=== PATIENT | female | born 1975 | race Caucasian/White ===

== ENCOUNTER → 2017-09-18 08:32 | Outpatient (CLI) | payer OTHER, SELFPAY ==
--- NOTE | 2017-09-18 08:34 | MM_ITS ---
MM Dig screening mamm BI w/CAD CAD Screening COMPARISON: Digital mammograms 01/11/2015 INDICATION: There Is a history of breast cancer patient maternal great aunt. There has been previous biopsy left breast. TECHNIQUE: Standard CC and MLO images were obtained. R2 CAD reviewed. FINDINGS: There is a diffusely dense and heterogenic parenchymal pattern lessening the sensitivity of mammography. There is an asymmetric density near the axillary tail the right breast which was not definitely seen on the previous mammogram. There are few benign-appearing calcifications left breast. There are no suspicious microcalcifications. IMPRESSION: Dense parenchymal pattern with possible developing asymmetric density right breast recommend the patient return for spot compression low and 90 degrees lateral view and an attempt at exaggerated cc view and ultrasound will be necessary as well BI-RADS Category: 0 Need Additional Imaging Evaluation RECOMMENDED FOLLOW-UP: IMM - IMMEDIATE FOLLOW-UP RECOMMENDED (A letter has been sent to the patient regarding results of the study.)
== END ==
PROVIDERS: PCP Physician Assistant; Visit Provider Physician Assistant
DX: Z12.31 Encounter for screening mammogram for malignant neoplasm of breast (principal)
CPT/HCPCS: 77067

== ENCOUNTER → 2017-10-09 13:19 | Outpatient (CLI) | payer OTHER, SELFPAY ==
--- NOTE | 2017-10-09 13:22 | MM_ITS ---
MM Dig mamm DX unilat RT CAD, US breast RT complete INDICATION: Follow-up abnormal mammogram ORDERING PHYSICIAN: KAVON Moran PATIENT AGE: 42 years COMPARISON: 09/18/2017 TECHNIQUE: Problem-solving views performed of the right breast along with right breast ultrasound FINDINGS: Right Mammogram: Spot compression views show persistent lobulated nodule in the upper outer aspect of the right breast measuring 2.2 x 2.1 cm. This has developed since an older mammogram of 01/11/2015 and corresponds to the abnormality noted on the screening study of 09/18/2017. Right breast ultrasound: Mammographic abnormality corresponds to a solid appearing nodule in the 10:00 region of the right breast measuring approximately 2 x 1.6 cm. The nodule is hypoechoic with fairly well-defined margins with some enhanced through transmission of sound. This may be related to a fibroadenoma however, biopsy is recommended for confirmation. IMPRESSION: Mammographic abnormality corresponds to a solid nodule which may be related to a fibroadenoma. Biopsy confirmation is recommended BI-RADS Category: 4 Suspicious Abnormality-Biopsy Considered RECOMMENDED FOLLOW-UP: BIO - BIOPSY RECOMMENDED Suggest ultrasound guided mammotome biopsy of the nodule in the upper outer right breast (A letter has been sent to the patient regarding results of the study.)
== END ==
PROVIDERS: PCP Physician Assistant; Visit Provider Physician Assistant
DX: R92.8 Other abnormal and inconclusive findings on diagnostic imaging of breast (principal)
CPT/HCPCS: 76641; 77065

== ENCOUNTER → 2017-10-23 09:40 | Outpatient (CLI) | payer OTHER, SELFPAY ==
--- NOTE | 2017-10-23 | US_ITS ---
US mammotome bx RT, MM Dig mamm DX unilat RT CAD, US breast RT complete INDICATION: Right breast mass ORDERING PHYSICIAN: KAVON Moran PATIENT AGE: 42 years COMPARISON: 10/09/2017 Right breast ultrasound: Ultrasound performed of the right breast once again confirms a 2 cm hypoechoic nodule in the 10:00 region of the right breast corresponding to the nodule seen on 10/09/2017. TECHNIQUE: Following obtaining informed consent under aseptic conditions and local anesthesia with 1% lidocaine and deeper anesthesia with lidocaine mixed with epinephrine skin gilda was performed and mammotomy needle inserted under sonographic guidance along the dorsal aspect of the hypoechoic nodule. Multiple mammotomy core biopsies obtained. A nonferromagnetic clip was then inserted. The patient tolerated the procedure well without evidence of immediate complications Right mammogram: Postbiopsy mammogram demonstrates postbiopsy changes in the upper outer right breast. Previously described nodule in the deep outer aspect of the right breast is once again noted is slightly smaller. A clip is present along the dorsal aspect of the nodule. Pathology: Benign fibroadenoma. IMPRESSION: Successful sonographic guided mammotomy biopsy of the right breast showing benign fibroadenoma. No immediate complications Recommend 6 month mammographic follow-up per routine protocol
== END ==
PROVIDERS: PCP Physician Assistant; Visit Provider Physician Assistant
DX: R92.8 Other abnormal and inconclusive findings on diagnostic imaging of breast (principal); N63.10 Unspecified lump in the right breast, unspecified quadrant
CPT/HCPCS: 19083; 76641; 77065; 88305; C2618

== ENCOUNTER → 2019-03-03 08:19 | Outpatient (CLI) | payer OTHER, SELFPAY ==
--- NOTE | 2019-03-03 08:21 | MM_ITS ---
PROCEDURE: MM DIG SCREENING MAMM BI W/CAD CLINICAL INDICATION: screening There is a history of breast cancer in patient's paternal great aunt. There has been a previous biopsy right breast for benign disease. COMPARISON: [facility] MM Dig screening mamm BI w/CAD from 09/18/2017 DXRT MM Dig mamm DX unilat RT CAD from 10/09/2017 DXRT MM Dig mamm DX unilat RT CAD from 10/23/2017 TECHNIQUE: Standard CC and MLO images were obtained. R2 CAD reviewed. FINDINGS: There is a diffusely dense and heterogenic parenchymal pattern somewhat lessening the sensitivity of mammography. The asymmetric nodular density previously biopsied is again seen near the axillary tail right breast and is stable. There is a benign-appearing calcification left breast. There are stable small nodes in both axilla. IMPRESSION: diffusely dense parenchymal pattern with no suspicious lesions seen BI-RAD Category: 2 Benign Finding(s) FOLLOW-UP: 1YR 1 Year Follow-up (A letter has been sent to the patient regarding results of the study.) Dictated by: Dr. Taurus Barrera MD 03/04/2019 10:[address] Taurus Barrera MD in [place] 03/04/2019 10:26
== END ==
PROVIDERS: PCP Physician Assistant; Visit Provider Physician Assistant
DX: Z12.31 Encounter for screening mammogram for malignant neoplasm of breast (principal)
CPT/HCPCS: 77067

== ENCOUNTER → 2019-06-24 13:25 | Outpatient (CLI) | payer OTHER, SELFPAY ==
[2019-06-24 14:01] LABS: Eosinophils # 0.1 K/mm3 (0.0-0.4); Eosinophils % 1.3 % (0.1-12.0); Hematocrit 36.5 % (37.0-47.0); Hemoglobin 11.2 g/dL (12.2-16.2); Lymphocytes # 1.3 K/mm3 (0.7-4.5); Lymphocytes % 30.8 % (10-50); Mean Corpuscular HGB Conc 30.6 g/dL (31.8-35.4); Mean Corpuscular Hemoglobin 25.7 pg (27.0-31.2); Mean Platelet Volume 10.9 fl (7.4-10.4); Monocytes # 0.2 K/mm3 (0.1-1.0); Monocytes % 5.7 % (1.7-9.3); Neutrophils # 2.6 K/mm3 (1.8-7.8); Neutrophils % 61.1 % (37.0-80.0); Platelet Count 342 K/mm3 (142-424); Red Blood Count 4.35 M/mm3 (4.20-5.40); Red Cell Distribution Width 15.5 % (11.5-17.5); White Blood Count 4.3 K/mm3 (4.8-10.8)
[2019-06-24 14:08] LABS: Chloride 111 mmol/L (98-107)
[2019-06-24 14:09] LABS: Sodium 142 mmol/L (136-145)
[2019-06-24 14:11] LABS: Alanine Aminotransferase 12 U/L (12-78); Aspartate Amino Transferase 22 U/L (14-36); Blood Urea Nitrogen 12 mg/dl (7-17); Carbon Dioxide 22 mmol/L (22.0-30.0); Estimated Glomerular Filt Rate 91 ml/min (>60); GFR (African American) 110 ML/MIN (>60)
[2019-06-24 14:12] LABS: Albumin Level 3.9 g/dl (3.5-5.0); Albumin/Globulin Ratio 1.3 (1.1-1.8); Alkaline Phosphatase 70 U/L (38-126); Bilirubin,Total 0.3 mg/dl (0.2-1.3); Calcium 9.5 mg/dl (8.4-10.2); Chol/HDL Ratio 5.3 (1-3.5); Cholesterol 196 mg/dl (140-200); Globulin 2.9 g/dL (1.3-3.2); Glucose 88 mg/dl (74-100); HDL Cholesterol 37 mg/dl (40-60); Total Protein,Serum 6.8 g/dl (6.3-8.2); Triglycerides 152 mg/dl (30-150); VLDL Cholesterol 30 mg/dL (0-40)
[2019-06-24 14:29] LABS: T4 (Thyroxine) 8.3 ug/dl (5.53-11.0)
[2019-06-24 14:42] LABS: Thyroid Stimulating Hormone 1.25 uIU/mL (0.465-4.68)
[2019-06-24 20:44] LABS: Amphetamine/Metha Screen,Urine Negative ng/ml (<1000); Barbiturates Screen,Urine Negative ng/ml (<200)
[2019-06-24 20:45] LABS: Benzodiazepines Screen,Urine Negative ng/ml (<200)
[2019-06-24 20:46] LABS: Cannabinoid Screen,Urine Negative ng/ml (<50); Cocaine Screen,Urine Negative ng/ml (<300)
[2019-06-24 20:47] LABS: Methadone Screen,Urine Negative ng/ml (<300); Opiate Screen,Urine Negative ng/ml (<300)
[2019-06-24 20:48] LABS: Phencyclidine Screen,Urine Negative ng/ml (<25)
[2019-06-25 12:37] LABS: Vitamin D 25 Hydroxy 20.5 ng/mL (30.0-100.0)
== END ==
PROVIDERS: Visit Provider Nurse Practitioner Family
DX: Z00.00 Encounter for general adult medical examination without abnormal findings (principal); Z79.899 Other long term (current) drug therapy; M54.9 Dorsalgia, unspecified; K43.9 Ventral hernia without obstruction or gangrene
CPT/HCPCS: 80053; 80061; 80305; 82652; 84436; 84443; 85025

== ENCOUNTER → 2019-07-08 10:21 | Outpatient (CLI) | payer OTHER, SELFPAY ==
--- NOTE | 2019-07-08 10:21 | CT_ITS ---
PROCEDURE: CT ABDOMEN PELVIS WO CON CLINICAL INDICATION: Possible hernia Umbilical hernia evaluation COMPARISON: No exams were available for comparison TECHNIQUE: Axial images obtained with sagittal and coronal reformats. All CT scans at the facility use one or more dose reduction, viz: automated exposure control, ma/kV adjustment per patient size (including targeted exams where dose is matched to indication, i.e. head), or iterative reconstruction technique. FINDINGS: LOWER THORAX: No acute finding ABDOMEN & PELVIS: Gallbladder slightly distended. The liver, spleen, adrenal glands, pancreas, and kidneys have an unremarkable appearance. No intestinal obstruction or free air. There are 3 appendicoliths noted the largest at approximately 4 mm. No evidence of appendicitis or diverticulitis. The uterus is bulky with a dense calcification anteriorly consistent with fibroid involvement. There is a small ventral abdominal wall hernia centrally 3 cm superior to the umbilicus. This contains small amount of fat. No acute bony anomalies are evident. IMPRESSION: 1. Small fat containing supraumbilical ventral abdominal wall hernia 2. Mildly distended gallbladder. 3. At least 3 appendicoliths noted. No evidence of appendicitis 4. Enlarged uterus with coarse calcification at the fundus consistent with fibroid involvement Dictated by: Raymond Pratt MD 07/09/2019 07:18 Electronically signed by Raymond Pratt MD in [place] 07/09/2019 07:18
== END ==
PROVIDERS: PCP Physician Assistant; Visit Provider Nurse Practitioner Family
DX: K43.9 Ventral hernia without obstruction or gangrene (principal)
CPT/HCPCS: 74176

== ENCOUNTER → 2019-10-22 07:45 | Outpatient (CLI) | payer OTHER, SELFPAY ==
[2019-10-22 07:49] LABS: Microscopic, Urine URINE MICROSCOPIC (MICROSCOPIC)
[2019-10-22 13:23] LABS: Appearance,Urine CLEAR (Clear); Basophils % 0.9 % (0.1-2.0); Bilirubin,Urine Negative (Negative); Blood, Urine Negative (Negative); Color,Urine YELLOW (Yellow); Eosinophils # 0.1 K/mm3 (0.0-0.4); Eosinophils % 1.4 % (0.1-12.0); Glucose,Urine (UA) Negative (Negative); Hematocrit 35.4 % (37.0-47.0); Hemoglobin 11.3 g/dL (12.2-16.2); Ketones,Urine Negative (Negative); Leukocyte Esterase,Urine Negative (Negative); Lymphocytes # 1.3 K/mm3 (0.7-4.5); Lymphocytes % 29.3 % (10-50); Mean Corpuscular HGB Conc 31.9 g/dL (31.8-35.4); Mean Corpuscular Hemoglobin 26.5 pg (27.0-31.2); Mean Corpuscular Volume 83.2 fl (81-99); Mean Platelet Volume 10.5 fl (7.4-10.4); Monocytes # 0.3 K/mm3 (0.1-1.0); Monocytes % 6.1 % (1.7-9.3); Neutrophils # 2.7 K/mm3 (1.8-7.8); Neutrophils % 62.3 % (37.0-80.0); Nitrate,Urine Negative (Negative); PH,Urine 6.5 (5.0-8.5); Platelet Count 245 K/mm3 (142-424); Protein,Urine Negative (Negative); Red Blood Count 4.25 M/mm3 (4.20-5.40); Red Cell Distribution Width 15.9 % (11.5-17.5); Urobilinogen,Urine 0.2 EU/dl (0.2); White Blood Count 4.3 K/mm3 (4.8-10.8)
[2019-10-22 13:34] LABS: Urine Pregnancy, HCG Qual. Negative (Negative)
[2019-10-22 13:39] LABS: Amorphous Sediment,Urine 3+ /lpf; Bacteria,Urine 1+ /lpf
[2019-10-22 13:46] LABS: Anion Gap 12.2 mEq/L (5-15); Blood Urea Nitrogen 13 mg/dl (7-17); Calcium 10.1 mg/dl (8.4-10.2); Carbon Dioxide 24 mmol/L (22.0-30.0); Chloride 105 mmol/L (98-107); Estimated Glomerular Filt Rate 68 ml/min (>60); GFR (African American) 82 ML/MIN (>60); Glucose 104 mg/dl (74-100); Potassium 4.2 mmoL/L (3.5-5.1); Sodium 137 mmol/L (136-145)
[2019-10-22 15:35] LABS: Coronavirus 19 IgG Antibody Negative (Negative); Coronavirus 19 IgM Antibody Negative (Negative)
== END ==
PROVIDERS: PCP Nurse Practitioner Family; Visit Provider Surgery
DX: Z01.818 Encounter for other preprocedural examination (principal); K43.9 Ventral hernia without obstruction or gangrene
CPT/HCPCS: 36415; 80048; 81001; 81025; 85025; 86328

== ENCOUNTER 2019-10-23 05:50 | Day surgery (SDC) | payer OTHER, SELFPAY ==
[2019-10-20 15:06] VITALS: BMI 25.7
--- NOTE | 2019-10-21 09:17 | SUR.PREOP ---
10/21/2019 @ 8507--PHONE CALL MADE TO PATIENT. PATIENT UNDERSTANDS THAT LAB WORK AND COVID TESTING NEEDS TO BE COMPLETED @ 0700 IN [place]. PATIENT UNDERSTANDS IF LAB WORK AND COVID-19 TESTS ARE NOT COMPLETED BY 12PM ON THAT DATE, THE SURGERY SCHEDULED WILL BE CANCELLED AND RESCHEDULED FOR ANOTHER TIME.
[2019-10-23] VITALS (11 sets, daily range): BP systolic 120–141; BP diastolic 70–92; PULSE 58–93; RESP 15–20; TEMP 6.1–43; O2SAT 99–100
--- NOTE | 2019-10-23 06:59 | HMH.ANESCL ---
[facility] Anesthesia Checklist - Patient Identification Patient Identification: Arm Band, Verbal (Name & ) - Structural Data Admitted From: Home Planned Operative Procedure/s: ventral hernia repair Consent for Planned Operative Procedure(s) Verified: Yes Verified Documents: History and Physical - NPO Status Verified Time NPO: 00:00 - Chart Verification Results Verified: CBC, BMP - Additional verifications Patient : No Anesthesia Reactions: No Hx Blood Transfusions: No Blood Transfusion Reaction: No Cephalosporin Allergy: No Previous Colonoscopy: No - Cardiovascular Assessment Heart Sounds: S1 & S2 Pulse Strength: Baseline Pulse Rhythm: Regular Peripheral Edema: No - Airway Assessment C-Spine Mobility Assessed: Yes TMJ Mobility Assessed: Yes Dentition: Good Dentition - Neurological Assessment Level of Consciousness: Awake, Alert, Appropriate Hx Seizures: No Numbness or tingling in extremities: No - Anesthesia Plan Anesthesia Risk discussed: Yes Anesthesia Plan: Verified ASA Class: I Anesthesia Type: General [facility] History I have reviewed the patient's past medical history: Yes Medical History: Denies:: Cancer, Diabetes Mellitus Type 1, Diabetes Mellitus Type 2, MRSA, Seizures *Have you ever received a pneumonia vaccine?: No *Have you received a flu vaccine this season?: No Other Medical History: Denies: Blood Transfusion Reaction Anesthesia experience/problems:: none Laterality Cases: Bilateral: Tonsillectomy Other Surgeries: Yes: Amputation: No Fractures: No - *Social History Smoking Status: Never smoker Alcohol Intake: never Substance Use Type: denies use *Occupational Status:: employed *Travel in the last 8 weeks: None Family Hx:: No significant family history
--- NOTE | 2019-10-23 08:40 | P.OP_ITS ---
Date of procedure: 10/23/19 Pre-op Diagnosis:: Supraumbilical hernia Post-op Diagnosis:: Same Procedure performed:: Laparoscopic-assisted open repair of supraumbilical hernia Surgeon:: Marshall Louis MD LAMP SHADE JOINER:: Rico Marlow Anesthesia: GETA Estimated blood loss (mL): 15 Operative findings:: 1.5 cm supraumbilical defect 6.4 cm VentraLex mesh repair Operative note:: After informed consent was obtained the patient was taken to the operating room and placed in the supine position. General anesthesia was induced and her abdomen was prepped and draped in a sterile fashion. After infiltration local anesthetic a stab incision was made in the left upper quadrant. A Veress needle was placed in position. The abdomen was insufflated. A 5 mm optical trocar was placed in the left mid flank. A 1.5 cm supraumbilical hernia was confirmed. An incision overlying the hernia was made. A 12 mm trocar was placed in position through the defect after the small hernia sac was excised. A 6.4 cm VentraLex mesh was placed through the trocar and secured circumferentially with 0 Ethibond. The fascia was then reapproximated primarily with 0 Ethibond. Pneumoperitoneum was released as the trocar was removed. All wounds were irrigated and skin was reapproximated with 4-0 Monocryl in a subcuticular fashion. Steri-Strips were applied. The patient's anesthetic agents were reversed and she was extubated prior to transfer to recovery. Condition: stable Disposition: PACU Specimens:: None Complications:: No immediate
--- NOTE | 2019-10-23 08:54 | P.PN_ITS ---
[facility] Anesthesia Record Part I Intake, IV Amount: 950 Estimated blood loss (mL): 5 Urine output (mL): 0 Blood Products used (#): none Blood Pressure: 141/84 SaO2: 100 Pulse Rate: 93 Respiratory Rate: 20 Temperature: 97.0 F Patient is:: Drowsy, Stable Stable to PACU at:: 08:52
--- NOTE | 2019-10-23 11:02 | HMH.ANESII ---
[facility] Anesthesia Record Part II Discharge Time: 09:22 Destination: Surgical Day Care (OP Surgery) PACU nurse assessment reviewed?: Yes Patient Condition:: Good Anesthesia Complications:: None Swallowing reflex intact?: Yes Cyanosis?: No Blood Pressure: 125/70 Pulse Rate: 60 Temperature: 97.6 F Mental Status: Alert & Oriented Pain level:: 0 Nausea and/or vomitting:: None Intake, IV Amount: 10
== END 2019-10-23 10:08 | disposition home or self-care (01) ==
LOC: OR 05:51
PROVIDERS: PCP Nurse Practitioner Family; Visit Provider Surgery
PROC: 0WQF4ZZ Repair Abdominal Wall, Percutaneous Endoscopic Approach (ICD-10-PCS; CPT 49652; principal; 2019-10-23 07:30)
DX: K43.9 Ventral hernia without obstruction or gangrene (principal); Z79.899 Other long term (current) drug therapy
CPT/HCPCS: 49652; 96374; C1781; J2710

== ENCOUNTER → 2020-03-14 07:58 | Outpatient (CLI) | payer OTHER, SELFPAY ==
--- NOTE | 2020-03-14 07:58 | MM_ITS ---
PROCEDURE: MM DIG SCREENING MAMM BI W/CAD Digital Breast Tomosynthesis Included CLINICAL INDICATION: screening History of breast cancer in the patient's maternal great aunt. There has been a previous biopsy right breast for benign disease. COMPARISON: [facility] MM Dig screening mamm BI w/CAD from 09/18/2017 MG DXRT MM Dig mamm DX unilat RT CAD from 10/09/2017 MG DXRT MM Dig mamm DX unilat RT CAD from 10/23/2017 MG MM DIG SCREENING MAMM BI W/CAD from 03/03/2019 TECHNIQUE: Standard CC and MLO images and 3D Tomosynthesis was obtained. R2 CAD reviewed. FINDINGS: There is prominent diffuse heterogenic fibroglandular densities in both breast primarily upper outer quadrants. There has been some progressive fatty replacement of the breast parenchyma from previous exams. There is a well-defined nodular density upper mid right breast and a biopsy clip projecting over this density. This likely is a fibroadenoma which was previously. There are few benign-appearing microcalcifications left breast and there is a mole marker left breast. There is no new or suspicious lesion in either breast and no suspicious microcalcifications. IMPRESSION: Moderately dense and heterogenic parenchymal pattern with no suspicious lesions seen BI-RAD Category: 2 Benign Finding(s) FOLLOW-UP: 1YR 1 Year Follow-up (A letter has been sent to the patient regarding results of the study.) Dictated by: Dr. Taurus Barrera MD 03/18/2020 08:25 Dr. Taurus Barrera MD in [place] 03/18/2020 08:25
== END ==
PROVIDERS: PCP Physician Assistant; Visit Provider Physician Assistant
DX: Z12.31 Encounter for screening mammogram for malignant neoplasm of breast (principal)
CPT/HCPCS: 77063; 77067

== ENCOUNTER → 2021-03-29 09:54 | Outpatient (CLI) | payer BC, SELFPAY ==
--- NOTE | 2021-03-29 09:58 | MM_ITS ---
PROCEDURE INFORMATION: Exam: MG Bilateral Screening 3D Mammography Exam date and time: 03/29/2021 9:58 AM Age: 45 years old Clinical indication: Screening mammogram TECHNIQUE: Imaging protocol: Bilateral screening tomosynthesis and 2D mammography including computer-aided detection (CAD) when performed. COMPARISON: 03/03/2019, 03/14/2020, 10/23/2017 FINDINGS: MAMMOGRAPHY: Breast composition: The breast tissue is heterogeneously dense, which may obscure small masses. Mass: Mass within the upper slightly inner posterior left breast measuring 12 mm with associated calcifications should be further assessed with spot magnification views in CC/ML projection. Ultrasound should also be performed. Architectural distortion: No new or suspicious architectural distortion. Calcifications: No new or suspicious calcifications are present Asymmetric density: No new or suspicious asymmetric density is present Skin thickening: None. Axillary adenopathy: None. IMPRESSION: Mass within the upper slightly inner posterior left breast measuring 12 mm with associated calcifications should be further assessed with spot magnification views in CC/ML projection. Ultrasound should also be performed. ASSESSMENT: BI-RADS category 0: Incomplete-need additional imaging evaluation
== END ==
PROVIDERS: PCP Nurse Practitioner Family; Visit Provider Nurse Practitioner Family
DX: Z12.31 Encounter for screening mammogram for malignant neoplasm of breast (principal)
CPT/HCPCS: 77063; 77067

== ENCOUNTER → 2021-05-17 14:00 | Outpatient (CLI) | payer BC, SELFPAY ==
--- NOTE | 2021-05-17 14:03 | MM_ITS ---
PROCEDURE INFORMATION: Exam: US Left Breast, Complete MG Left Diagnostic Breast Tomosynthesis Exam date and time: 05/17/2021 2:03 PM Age: 46 years old Clinical indication: Patient recalled for further evaluation of a calcified mass in the left breast TECHNIQUE: Imaging protocol: Complete ultrasound of all four quadrants of the Left breast and the retroareolar regions, including ultrasound of the axilla when performed. Left Diagnostic tomosynthesis and 2D mammography including computer-aided detection (CAD) when performed. Unilateral or bilateral exam. COMPARISON: 1. MG MM DIG SCREENING MAMM BI W/CAD 03/29/2021 10:02 AM 2. MG MM DIG SCREENING MAMM BI W/CAD 03/14/2020 8:06 AM FINDINGS: MAMMOGRAPHY: Digital diagnostic spot compression views of the left breast demonstrate a cluster of new calcifications in the middle third of the left upper inner quadrant spanning 1.1 cm of breast tissue. The calcifications are variable in size, shape, and density. In the 90 degree lateral view there is a questionable associated 1.2 cm ovoid mass. ULTRASOUND: Sonographic images of the left breast including the retroareolar region, all 4 quadrants and the axilla demonstrates a hypoechoic mass in the 11 o'clock axis 3 cm from the nipple measuring 1 1 x 5 x 0.7 cm in dimension. This may correlate with the questionable mass containing calcium on mammography. No architectural distortion or acoustical shadowing. No skin thickening or axillary adenopathy. IMPRESSION: Ultrasound-guided core biopsy is recommended for left sonographically visible 11 o'clock axis mass. It is unclear if this corresponds to the partially calcified mass on mammography. Clip placement and subsequent diagnostic left mammogram is recommended for accurate correlation. If the 2 findings do not correlate, then stereotactic core biopsy of the left-sided calcifications will be recommended ASSESSMENT: BI-RADS Category 4: Suspicious
== END ==
PROVIDERS: PCP Nurse Practitioner Family; Visit Provider Nurse Practitioner Family
DX: R92.8 Other abnormal and inconclusive findings on diagnostic imaging of breast (principal)
CPT/HCPCS: 76641; 77061; 77065; G0279

== ENCOUNTER → 2021-06-13 08:41 | Outpatient (CLI) | payer BC, SELFPAY ==
--- NOTE | 2021-06-13 09:02 | US_ITS ---
FINAL REPORT CLINICAL HISTORY: Left breast nodule ?2 FINDINGS: Note: Patient was scheduled for ultrasound directed biopsy of a small left breast nodule at 11:00 measuring 10 x 5 mm. However on initial assessment for localization of the nodule, a 2nd nodule was identified more superficially and larger than the original nodule. Therefore both nodules were targeted for biopsy. ULTRASOUND-GUIDED LEFT BREAST BIOPSY, 10:00 nodule, more superficial/anterior, nodule 1 TECHNIQUE: Limited images were obtained to localize region of interest. The was prepped in a routine sterile fashion and locally anesthetized with 1% lidocaine. The needle was positioned within the outer periphery of the lesion. A total of 3 passes were made with a 18 gauge core biopsy needle. 2 biopsy marker clips within the fluid within the lesion. 2 were utilized since all biopsy marker clips at the facility where identical in configuration implants at that time were to core biopsy a 2nd nodule of the ipsilateral breast. Procedure was well tolerated . A postbiopsy mammogram was acquired which showed the clips to be anterior and separate to calcifications identified on recent mammography CONCLUSION: 1. Technically successful ultrasound guided core biopsy of superficial/anterior left breast nodule at 10:00 as above. 2. Biopsy marker clip deployed 3. This nodule is separate from the abnormality containing calcifications on mammography. Therefore stereotactic biopsy of the calcifications is recommended. ULTRASOUND-GUIDED LEFT BREAST BIOPSY, 11:00 nodule more posterior, nodule #2 TECHNIQUE: Limited images were obtained to localize region of interest. The left was prepped in a routine sterile fashion and locally anesthetized with 1% lidocaine. Initial plan was to perform core biopsy of a 10 x 5 mm posterior left breast nodule. An 18-gauge core biopsy needle was directed toward the nodule. However significant resistance was encountered advancing the needle through the extremely dense breast tissue. Although the needle was noted to abut the nodule, the angle was suboptimal with concern that the biopsy needle would extend into the chest wall due to the angle and location of the nodule. The nodule was noted to reside on the left pectoralis muscle. A 17-gauge guide needle was entered advanced in an effort to gain a more optimal approach which was unsuccessful. An 11-gauge mammotome elite vacuum assisted needle was directed toward the nodule in an effort to position posterior to the lesion of interest. Again extremely dense tissue made advancement difficult. Despite efforts to infiltrate a pathway posterior to the nodule with lidocaine, the vacuum assisted needle could not be safely positioned posterior to the nodule. Ultrasound directed FNA was then performed. 3 passes were made with a 22-gauge needle. Specimen was submitted in CytoLyte. No clip was deployed within this nodule. Procedure was well tolerated . CONCLUSION: 1. Small left breast nodule not amenable to imaging directed core biopsy due to extreme posterior location and dense tissue. FNA performed of the nodule. This nodule may be associated with calcifications identified on mammography. However the other nodule that underwent core biopsy in the more anterior left breast was not associated with calcifications. 2. Six-month sonographic follow-up with attention to this nodule is recommended. Authenticated by Consuelo Cadet MD on 06/15/2021 02:25:09 PM [facility]
--- NOTE | 2021-06-13 10:23 | MM_ITS ---
FINAL REPORT CLINICAL HISTORY: post us bx, clip placement FINDINGS: MAMMOGRAM LEFT Comparison: Recent mammogram performed less than 3 months earlier TECHNIQUE: Standard digital 2-D views with 3-D tomosynthesis DENSITY: The breasts are heterogeneously dense, which may obscure small masses. FINDINGS: Loosely grouped calcifications in the central posterior left breast are noted. These are located separate from a recently biopsied nodule in the left breast associated with 2 biopsy marker clips. A biopsy marker clip is also noted in the posterior left breast in the upper outer quadrant. IMPRESSION: 1. Biopsy marker clip is noted within the central left breast. Nodule associated with the biopsy marker clips is only evident sonographically 2. Calcifications of interest within the central posterior left breast represent a separate process from the recently biopsied nodule associated with biopsy marker clips BI RAD 4: SUSPICIOUS RECOMMENDATION: Stereotactic biopsy of left breast calcifications Authenticated by Consuelo Cadet MD on 06/15/2021 02:28:57 PM [facility]
== END ==
LOC: RAD 08:41
PROVIDERS: PCP Nurse Practitioner Family; Visit Provider Nurse Practitioner Family
DX: R92.8 Other abnormal and inconclusive findings on diagnostic imaging of breast (principal)
CPT/HCPCS: 19083; 77065; C2618

== ENCOUNTER → 2022-04-26 14:22 | Outpatient (CLI) | payer BC, SELFPAY ==
--- NOTE | 2022-04-26 14:29 | XR_ITS ---
FINAL REPORT CLINICAL HISTORY: FAMILY H/O MALIGNANT NEOPLASM OF LUNG, cough FINDINGS: TWO-VIEW CHEST The heart size is normal. The mediastinum is normal. The lungs are clear. There is no pneumothorax. IMPRESSION: No acute cardiopulmonary process. Reviewed, Interpreted and Dictated by Mario Langston III, MD Transcribed by Lita Duran Authenticated and [facility]
== END ==
PROVIDERS: PCP Nurse Practitioner Family; Visit Provider Nurse Practitioner Family
DX: Z80.1 Family history of malignant neoplasm of trachea, bronchus and lung (principal)
CPT/HCPCS: 71046

== ENCOUNTER → 2022-06-20 10:05 | Outpatient (CLI) | payer BC, SELFPAY ==
--- NOTE | 2022-06-20 10:11 | MM_ITS ---
PROCEDURE INFORMATION: Exam: MG Bilateral Screening 3D Mammography Exam date and time: 06/20/2022 10:01 AM Age: 47 years old Clinical indication: Screening examination TECHNIQUE: Imaging protocol: Bilateral Screening tomosynthesis and 2D mammography including computer-aided detection (CAD) when performed. COMPARISON: 1. MG MM CLIP PLACEMENT LT 06/13/2021 10:28 AM 2. MG MM DIG MAMM DX UNILAT LT CAD 05/17/2021 1:58 PM FINDINGS: MAMMOGRAPHY: Breast composition: The breasts are extremely dense, which lowers the sensitivity of mammography. Mass: Questionable partially circumscribed mass in the anterior third of the left medial breast best seen in the craniocaudal tomographic view Architectural distortion: None. Calcifications: No suspicious calcifications. Asymmetric density: None. Skin thickening: None. Axillary adenopathy: None. IMPRESSION: Patient to be recalled for a spot compression view of the left breast in the craniocaudal projection, a full 90 degree lateral view of the left breast, and left breast ultrasound for further evaluation of a questionable left breast mass. ASSESSMENT: BI-RADS Category 0: Incomplete- Need Additional Imaging Evaluation and/or Prior Mammograms for Comparison
== END ==
PROVIDERS: PCP Nurse Practitioner Family; Visit Provider Nurse Practitioner Family
DX: Z12.31 Encounter for screening mammogram for malignant neoplasm of breast (principal)
CPT/HCPCS: 77063; 77067

== ENCOUNTER → 2022-08-22 12:55 | Outpatient (CLI) | payer BC, SELFPAY ==
--- NOTE | 2022-08-22 13:07 | MM_ITS ---
PROCEDURE INFORMATION: Exam: MG Left Diagnostic Breast Tomosynthesis Exam date and time: 08/22/2022 1:14 PM Age: 47 years old Clinical indication: Patient recalled on the basis of a screening mammogram for further evaluation; Left breast; mass TECHNIQUE: Imaging protocol: Left Diagnostic tomosynthesis and 2D mammography including computer-aided detection (CAD) when performed. Unilateral or bilateral exam. COMPARISON: 1. MG MM DIG SCREENING MAMM BI W/CAD 06/20/2022 10:01 AM 2. MG MM CLIP PLACEMENT LT 06/13/2021 10:28 AM FINDINGS: MAMMOGRAPHY: Digital diagnostic spot compression views of the left breast and 90 degree lateral view of the left breast demonstrate normal overlapping fibroglandular structures without persistent mass or asymmetry identified. IMPRESSION: No mammographic evidence of malignancy. Annual bilateral mammographic screening is recommended unless otherwise clinically indicated. ASSESSMENT: BI-RADS Category 1: Negative
== END ==
PROVIDERS: PCP Nurse Practitioner Family; Visit Provider Nurse Practitioner Family
DX: R92.2 Inconclusive mammogram (principal)
CPT/HCPCS: 77061; 77065; G0279

== ENCOUNTER 2023-08-21 08:17 | Outpatient (CLI) | payer BC, SELFPAY | END 2023-08-21 23:59 | disposition home or self-care (01) | LOC: RAD 08:17 | PROVIDERS: PCP Nurse Practitioner Family; Visit Provider Nurse Practitioner Family | DX: Z12.31 Encounter for screening mammogram for malignant neoplasm of breast (principal) | CPT/HCPCS: 77063; 77067 ==

== ENCOUNTER 2024-12-16 09:28 | Outpatient (CLI) | payer BC, SELFPAY ==
--- NOTE | 2024-12-16 09:31 | MM_ITS ---
PROCEDURE INFORMATION: Exam: MG Bilateral Screening 3D Mammography Exam date and time: 12/16/2024 10:00 AM Age: 49 years old Clinical indication: Screening examination TECHNIQUE: Imaging protocol: Bilateral Screening tomosynthesis and 2D mammography including computer-aided detection (CAD) when performed. COMPARISON: 1. MG MM DIG SCREENING MAMM BI W/CAD 08/21/2023 8:13 AM 2. MG MM DIG MAMM DX UNILAT LT CAD 08/22/2022 1:14 PM FINDINGS: MAMMOGRAPHY: Breast composition: The breasts are heterogeneously dense, which may obscure small masses. Mass: No suspicious masses. Architectural distortion: None. Calcifications: No suspicious calcifications. Asymmetric density: None. Skin thickening: None. Axillary adenopathy: None. IMPRESSION: No mammographic evidence of malignancy. Annual screening is recommended unless otherwise clinically indicated. ASSESSMENT: BI-RADS Category 1: Negative.
--- OUTSIDE RECORDS SUMMARY | 2024-12-16 09:31 | XMS_ITS | Patient Health Record ---
Author Organization [facility] Address [address] [facility] [address] [place] [address] Care Team Providers Care Meeting/Event Planner Name Role Phone Luis Aparicio Unavailable [phone] Allergies No Known Allergies Results Component Value Reference Range Notes Pap w/HPV Reviewed date:08/05/2024 08:55:09 PM Interpretation:Pap normal, HPV negative Performing Lab:Mel ROBINS [facility] MW MILENA CLIA ID [id number], [address], [address], [place] [address], Director - Chico Rosen MD Notes/Report: Any Nucleic Acid Amplification testing is performed on the [employer] [place]. Diagnosis: Negative for intraepithelial lesion or malignancy. AP results Results of Last Pap: Not provided Specimen Source: Cervical/Endocervical Date of Last Pap: Not provided CPT Codes: 13462 Other Gynecological Patient Information: Not provided Specimen Type: ThinPrep FINAL HOME OFFICE CLAIMS EXAMINER CYTOLOGY REPORT Satisfactory for interpretation with endocervical/transformat ion zone component absent. ICD Codes: Z01.419 Recommendation: Follow-up based on current clinical guidelines and/or clinical consideration. Negative Educational Note: The pap screening test aids in the detection of premalignant and malignant states of the cervix. False positive and negative results may occur. It is not a diagnostic test. If abnormal cells are reported, follow-up based on current clinical guidelines and/or clinical consideration is recommended. Specimen Adequacy: Lapper Nettie Saldivar DIAGNOSIS: Negative for intraepithelial lesion or malignancy. Pertinent Clinical History/History of Surgery: Not provided Screening note: This specimen has been analyzed by the ThinPrep Imaging System, an interactive computer system which assists the lab in screening of ThinPrep Pap Test slides. Following imaging, the slide was reviewed by a Lapper and/or Pathologist. LMP: . Collection Technique: Not provided HPV High-Risk Negative Negative Reason For Referral No Information Medications Medication SIG (Take, Route, Frequency, Duration) Notes Start Date End Date Status Zolpidem Tartrate 10 MG Tablet TAKE ONE TABLET BY MOUTH AT BEDTIME Oral; Duration: 30 Days Active Vitamin D3 1.25 MG (84624 UT) Capsule Take ONE capsule BY MOUTH ONCE WEEKLY Oral; Duration: 84 Days Active Topiramate 100 MG Tablet Oral; Duration: 90 Days Active FeroSul 325 (65 Fe) MG Tablet Take 1 tablet every day by oral route as directed. Oral; Duration: 90 Days Active Social History Sex Assigned At : Social History Observation Description Sex Assigned At Female Social History Drugs/Alcohol: Social Info Question Answer Notes Drugs Have you used drugs other than those for medical reasons in the past 12 months? No Alcohol Screen Did you have a drink containing alcohol in the past year? No Points 0 Interpretation Negative Additional Details Category Social Info Options Details Miscellaneous: Caffeine: On an occasio nal basis-not everyday Problems Problem Type SNOMED Code ICD Code Onset Dates Problem Status W/U Status Risk Notes Problem Hypertrophy of uterus (100350879) Bulky or enlarged uterus (N85.2) 021 Active confirmed Enlarged Uterus Problem Sexually transmitted infectious disease (0757767) Encntr screen for infections w sexl mode of transmiss (Z11.3) 020 Active confirmed Screening examination for venereal disease Problem Gynecological examination normal (89752177046264 4) Women's annual routine gynecological examination (Z01.419) Active confirmed Problem Gynecological examination normal (47558383176540 4) Cervical smear, as part of routine gynecological examination (Z01.419) 019 Active confirmed Annual without abnormal findings Problem Uterine leiomyoma (08801227) Benign metastasizing leiomyoma of uterus (D25.9) 021 Active confirmed Fibroids, uterus Vital Signs Heart Rate 76 /min 07/29/2024 Respiratory Rate 18 /min 07/29/2024 Oximetry 100 % 07/29/2024 Blood pressure diastolic 76 mm Hg 07/29/2024 Height 64 in 07/29/2024 Blood pressure systolic 124 mm Hg 07/29/2024 Weight 143.8 lbs 07/29/2024 BMI 24.68 kg/m2 07/29/2024 Encounters Encounter Location Date Provider Diagnosis [facility] [address] [place] [address] 07/29/2024 Luis Aparicio General Office Dispatcher exam without abnormal findings Z01.419 Assessments Encounter Date Diagnosis (ICD Code) Assessment Notes Treatment Notes Treatment Clinical Notes Section Notes 07/29/2024 General Office Dispatcher exam without abnormal findings (ICD-10 - Z01.419) Plan Of Treatment Next Appt Details Provider Name:Luis Aparicio, 08/04/2025 10:45:00 AM, [address], [place], [address], Insurance Providers Payer Name Payer Address Payer Phone Subscriber Number Group Number Insured Name Patient Relationship to Insured Coverage Start Date Coverage End Date Tomas ARAIZA [address] [place] [address] [id number] Baljit GarciaNinfa Self - patient is the insured Medical (General) History Medical History History ICD Code fibrocystic breast UTI Surgical History Surgery Date(Month/Year) Primary section 1996 Hernia repair 2020 Primary section 2005 Primary section 2011 tonsilectomy 2008 Hospitalization History Reason Date(Month/Year) L&D 2011 L&D 2005 L&D 1996
== END 2024-12-16 23:59 | disposition home or self-care (01) ==
LOC: RAD 09:29
PROVIDERS: PCP Nurse Practitioner Family; Visit Provider Nurse Practitioner Family
DX: Z12.31 Encounter for screening mammogram for malignant neoplasm of breast (principal); R92.333 Mammographic heterogeneous density, bilateral breasts
CPT/HCPCS: 77063; 77067